=== PATIENT | male | born 1995 | race Caucasian/White ===

== ENCOUNTER 2017-01-12 14:59 | Inpatient (IN) | payer MEDICAID ==
[~2017-01-12] VITALS: Ht 188 cm; Wt 93.5 kg
--- NOTE | ~2017-01-12 | CON ---
[place], [place] REPORT OF CONSULTATION NAME: DANIEL FRASER UNIT #: [id number] ROOM: 419 DOCTOR: ANTHONY FIGUEROA ED.D (ANGELLA) BIRTHDATE: [birth year] DOS: 01/13/2017 HISTORY OF PRESENT ILLNESS: The patient is a 21-year-old male referred by Dr. Amezcua for a psychological evaluation. At the present time, he is a [facility] patient here at [facility] on the 4th floor. He states he is single and has no children. He does not have a family physician. His medical history is pertinent for benzodiazepine abuse, opioid addiction, tobacco abuse, cocaine abuse and cannabis abuse. This patient's drug of choice has been opiates, but he has used multiple other drugs. This patient was awake, alert and oriented in all 3 spheres. He indicated he is at [facility]. He knew the date and year. He did not appear to be actively hallucinating. He denies any suicidal ideation or plan. He states he has been to rehabilitation twice, once in [place] and once in [place]. He states he wants to follow with outpatient care in the [place] area near his home once he is discharged from [facility]. He was apparently going through withdrawal and had difficult time with fine motor skills as he went through withdrawal. I will discuss this case further with the hospitalist. DIAGNOSES: 1. Opiate addiction. 2. Opiate withdrawal. 3. Benzodiazepine abuse. 4. Tobacco abuse. 5. Cocaine abuse. 6. Cannabis abuse. Thank you very much for this consult. ANTHONY FIGUEROA ED.D CM:CONSTR:REPORT OF CONSULTATION [id number] 01/14/17 0040 interface CONCETTA AMEZCUA DO
[2017-01-12 15:08] VITALS: BP 150/78
[2017-01-12 15:31] LABS: BASO # 0.1 10*3/uL (0.0-0.1); BASO % 0.6 % (0.0-1.0); EOS # 0.1 10*3/uL (0.0-0.4); EOS % 1.3 % (1.0-4.0); HEMATOCRIT 44.9 % (42.0-52.0); LYMPH # 4.1 10*3/uL (1.3-4.4); LYMPH % 46.2 % (27.0-41.0); MEAN CELL VOLUME 89.3 fl (80.0-94.0); MEAN CORPUSCULAR HGB 29.8 pg (27.0-31.0); MEAN CORPUSCULAR HGB CONC 33.4 g/dl (33.0-37.0); MEAN PLATELET VOLUME 9.3 fl (9.6-12.3); MONO # 0.7 10*3/uL (0.1-1.0); NEUT # 3.9 10*3/uL (2.3-7.9); NEUT % 43.7 % (47.0-73.0); PLATELET COUNT AUTOMATED 261 10*3/uL (130-400); RED BLOOD COUNT 5.03 10*6/uL (4.50-5.90); RED CELL DISTRI WIDTH 13.2 % (0-14.5)
[2017-01-12 15:48] LABS: ALBUMIN 4.3 gm/dl (3.1-4.5); ALKALINE PHOSPHATASE 107 U/L (45-117); BILIRUBIN, TOTAL 0.2 mg/dl (0.2-1.0); BUN 10 mg/dl (7-24); CARBON DIOXIDE 33 mmol/L (21-32); CHLORIDE 103 mmol/L (98-107); EST GLOM FILT AFRICAN AMERICAN > 60 ml/min; GLUCOSE 84 mg/dL (65-99); POTASSIUM 3.6 mmol/L (3.5-5.1); SGOT/AST 26 IU/L (3-35); SGPT/ALT 34 U/L (12-78); SODIUM 143 mmol/L (136-145); TOTAL PROTEIN 7.7 gm/dL (6.4-8.2)
[2017-01-12 15:53] LABS: BILIRUBIN NEGATIVE (NEGATIVE); BLOOD NEGATIVE (NEGATIVE); CLARITY SL CLOUDY (CLEAR); COLOR YELLOW (YELLOW); GLUCOSE NEGATIVE (NEGATIVE); KETONE NEGATIVE (NEGATIVE); LEUKO ESTERASE NEGATIVE (NEGATIVE); NITRITE NEGATIVE (NEGATIVE); PH 5.5 (5.0-9.0); PROTEIN NEGATIVE (NEGATIVE); SPECIFIC GRAVITY >= 1.030 (1.005-1.030)
[2017-01-12 16:00] VITALS: BP 138/71
[2017-01-12 16:02] LABS: BACTERIA TRACE; CALCIUM OXALATE CRYSTALS 1+; EPITHELIAL CELLS 0-2; MUCOUS 1+; RBC 0-2 rbc/hpf (0-2); URINE REFLEX COMMENT NO (NO)
[2017-01-12 16:04] LABS: URINE AMPHETAMINES < 1000 (1000ng/ml); URINE BARBITURATES < 200 (200ng/ml); URINE COCAINE < 300 (300ng/ml)
[2017-01-12 16:30] VITALS: BP 138/71
[2017-01-12 16:44] LABS: PROTHROMBIN TIME 10.3 SECONDS (9.0-12.4)
[2017-01-12 20:00] VITALS: BP 119/64
[2017-01-13 08:00] VITALS: BP 150/72
[2017-01-13 12:00] VITALS: BP 144/76
[2017-01-13 16:00] VITALS: BP 92/63
[2017-01-13 20:00] VITALS: BP 110/82
[2017-01-14] VITALS: BP 113/71
[2017-01-14 08:00] VITALS: BP 112/64
== END 2017-01-14 08:01 | disposition left against medical advice (07) | DRG 894 ==
LOC: ED 14:59 → EDHOLD 15:43 → 4E 15:43
PROVIDERS: Internal Medicine; Nurse Practitioner Family
DX: F11.23 Opioid dependence with withdrawal (principal); I10 Essential (primary) hypertension; F14.10 Cocaine abuse, uncomplicated; Z53.21 Procedure and treatment not carried out due to patient leaving prior to being seen by health care provider; F17.200 Nicotine dependence, unspecified, uncomplicated; F13.10 Sedative, hypnotic or anxiolytic abuse, uncomplicated; F12.10 Cannabis abuse, uncomplicated; Z71.6 Tobacco abuse counseling